=== PATIENT | male | born 1955 | race Two or more races ===

== ENCOUNTER 2018-06-29 03:51 | Inpatient (IN) | payer OTHER ==
[~2018-06-29] VITALS: Ht 185.4 cm; Wt 119.7 kg
[2018-06-29] VITALS (8 sets, daily range): BP systolic 132–170; BP diastolic 80–98
[2018-06-29] MEDS ORDERED: Morphine Sulfate 4mg/ml Inj (IV USE ONLY) IVP ONE (04:15)
[2018-06-29 04:40] LABS: HEMATOCRIT 46.1 % (42.0-52.0); HEMOGLOBIN 15.6 G/DL (14.2-18.0); LYMPHOCYTES % (AUTO) 36.6 % (20.0-45.0); MEAN CORPUSCULAR VOLUME 89 FL (80-99); NEUTROPHILS % (AUTO) 53.4 % (45.0-75.0); PLATELET COUNT 211 K/UL (150-450); RED BLOOD COUNT 5.17 M/UL (4.70-6.10); RED CELL DISTRIBUTION WIDTH 11.7 % (11.6-14.8); WHITE BLOOD COUNT 5.6 K/UL (4.8-10.8)
--- NOTE | 2018-06-29 04:47 | Emergency Room Report ---
History of Present Illness General Chief Complaint: Pain Source: Patient, Significant Other Present Illness HPI Patient's a 62-year-old male who presented after increased right lower extremity pain. Patient prior history of gouty arthritis. Patient had been the taking medications. He had recent laboratory testing which showed normal uric acid level. Patient had been noted to have the pain which radiated from the low back to the right leg. The patient been followed by Dr. Dupree. Allergies: Coded Allergies: No Known Allergies (Unverified , 06/29/18) Patient History Past Medical History: see triage record Reviewed Nursing Documentation: PMH: Agreed; PSxH: Agreed Nursing Documentation-PMH Past Medical History: No History, Except For Hx Hypertension: Yes Review of Systems All Other Systems: negative except mentioned in HPI Physical Exam Vital Signs Date Time Temp Pulse Resp B/P (MAP) Pulse Ox O2 Delivery O2 Flow Rate FiO2 06/29/18 03:56 97.9 58 17 186/93 95 Room Air 97.9 Sp02 EP Interpretation: reviewed, normal General Appearance: normal inspection, well appearing, no apparent distress, alert, Chronically Ill Head: atraumatic ENT: normal ENT inspection, hearing grossly normal, normal voice Neck: normal inspection, full range of motion, supple, no bony tend Respiratory: normal inspection, lungs clear, normal breath sounds, no respiratory distress, no retraction, no wheezing Cardiovascular #1: regular rate, rhythm, no edema Gastrointestinal: normal inspection, normal bowel sounds, non tender, soft, no guarding, no hernia Genitourinary: no CVA tenderness Musculoskeletal: normal inspection, back normal, normal range of motion, decreased range of motion, swelling Neurologic: normal inspection, alert, oriented x3, responsive, 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, speech normal Psychiatric: normal inspection, judgement/insight normal, mood/affect normal Skin: normal inspection, normal color, no rash Medical Decision Making Diagnostic Impression: Primary Impression: DVT of popliteal vein Additional Impression: Gouty arthritis ER Course patient presented for Right leg pain .Differential diagnosis included but was not limited to fracture, contusion, renal stone, vascular insufficiency, aortic aneurysm, cellulitis.Because of complexity of patient's case laboratory testing and imaging studies were ordered.Deep venous thrombosis ultrasound of the right lower extremity showed evidence of popliteal DVT. Patient was started on Lovenox. Dr. Cielo Louise was contacted for inpatient management due to panel physician Labs Test 06/29/18 04:30 White Blood Count 5.6 K/UL (4.8-10.8) Red Blood Count 5.17 M/UL (4.70-6.10) Hemoglobin 15.6 G/DL (14.2-18.0) Hematocrit 46.1 % (42.0-52.0) Mean Corpuscular Volume 89 FL (80-99) Mean Corpuscular Hemoglobin 30.2 PG (27.0-31.0) Mean Corpuscular Hemoglobin Concent 33.8 G/DL (32.0-36.0) Red Cell Distribution Width 11.7 % (11.6-14.8) Platelet Count 211 K/UL (150-450) Mean Platelet Volume 7.4 FL (6.5-10.1) Neutrophils (%) (Auto) 53.4 % (45.0-75.0) Lymphocytes (%) (Auto) 36.6 % (20.0-45.0) Monocytes (%) (Auto) 7.0 % (1.0-10.0) Eosinophils (%) (Auto) 2.0 % (0.0-3.0) Basophils (%) (Auto) 1.0 % (0.0-2.0) Prothrombin Time 10.4 SEC (9.30-11.50) Prothromb Time International Ratio 1.0 (0.9-1.1) Activated Partial Thromboplast Time 28 SEC (23-33) D-Dimer 0.69 mg/L FEU (0.00-0.49) Sodium Level 139 MMOL/L (136-145) Potassium Level 4.1 MMOL/L (3.5-5.1) Chloride Level 104 MMOL/L (98-107) Carbon Dioxide Level 27 MMOL/L (21-32) Anion Gap 8 mmol/L (5-15) Blood Urea Nitrogen 26 mg/dL (7-18) Creatinine 1.1 MG/DL (0.55-1.30) Estimat Glomerular Filtration Rate > 60 mL/min (>60) Glucose Level 108 MG/DL (74-106) Calcium Level 8.7 MG/DL (8.5-10.1) Total Bilirubin 0.3 MG/DL (0.2-1.0) Aspartate Amino Transf (AST/SGOT) 25 U/L (15-37) Alanine Aminotransferase (ALT/SGPT) 30 U/L (12-78) Alkaline Phosphatase 76 U/L (46-116) Total Protein 7.5 G/DL (6.4-8.2) Albumin 3.6 G/DL (3.4-5.0) Globulin 3.9 g/dL Albumin/Globulin Ratio 0.9 (1.0-2.7) Last Vital Signs Date Time Temp Pulse Resp B/P (MAP) Pulse Ox O2 Delivery O2 Flow Rate FiO2 06/29/18 04:38 97.9 59 17 155/92 95 Room Air 97.9 Status: unchanged Disposition: ADMITTED INPATIENT Condition: Serious Referrals: TIEN CRESPO,REFERRING (PCP) Santiago Vazquez MD Jun 29, 2018 04:47
[2018-06-29 04:53] LABS: ANION GAP 8 mmol/L (5-15); BLOOD UREA NITROGEN 26 mg/dL (7-18); CALCIUM 8.7 MG/DL (8.5-10.1); CARBON DIOXIDE 27 MMOL/L (21-32); CHLORIDE 104 MMOL/L (98-107); CREATININE 1.1 MG/DL (0.55-1.30); POTASSIUM 4.1 MMOL/L (3.5-5.1); SODIUM 139 MMOL/L (136-145)
[2018-06-29 04:58] LABS: ALANINE AMINOTRANSFERASE 30 U/L (12-78); ALBUMIN 3.6 G/DL (3.4-5.0); ALBUMIN/GLOBULIN RATIO 0.9 (1.0-2.7); ALKALINE PHOSPHATASE 76 U/L (46-116); ASPARTATE AMINO TRANSFERASE 25 U/L (15-37); BILIRUBIN,TOTAL 0.3 MG/DL (0.2-1.0)
[2018-06-29] MEDS ORDERED: Ketorolac 30mg Inj IV ONE (05:00)
[2018-06-29] MEDS ORDERED: Enoxaparin 80mg Inj SUBQ ONE (05:15)
[2018-06-29] MEDS ORDERED: ALLOPURINOL300 M1 ORAL (08:05)
[2018-06-29] MEDS ORDERED: DICLOFENAC SOD100 MG PO (08:11)
[2018-06-29] MEDS ORDERED: PRAVASTATIN SOD40 M1 ORAL (08:11)
[2018-06-29] MEDS ORDERED: FENOFIBRATE145 M1 ORAL (08:11)
[2018-06-29] MEDS ORDERED: ATENOLOL50 MG ORAL (08:11)
[2018-06-29] MEDS ORDERED: PHENYTOIN SODI100 MG ORAL (08:11)
[2018-06-29] MEDS ORDERED: Xarelto 15mg tab ORAL SCH (09:22)
[2018-06-29] MEDS: Xarelto 15mg tab ORAL SCH ×2 (09:36→17:46)
--- NOTE | 2018-06-29 10:03 | Consultation ---
Consult Note Consult Note Patient's a 62-year-old male who presented after increased right lower extremity pain. Patient prior history of gouty arthritis. Patient had been the taking medications. He had recent laboratory testing which showed normal uric acid level. Patient had been noted to have the pain which radiated from the low back to the right leg. The patient been followed by Dr. Dupree. right leg pain , lower back radiates down examined data reviewed Assessment/Plan HTN Sciatica Obese DVT adjust BP meds check Lipids HgbA1c Tara management Jose Armando Black MD Jun 29, 2018 10:03
[2018-06-29 10:44] LABS: CHOLESTEROL 254 MG/DL (< 200); HDL CHOLESTEROL 66 MG/DL (40-60); TRIGLYCERIDES 152 MG/DL (30-150)
[2018-06-29] MEDS: Diclofenac 75mg tab ORAL SCH ×2 (10:55→18:29)
[2018-06-29 11:07] LABS: APPEARANCE,URINE CLEAR; BILIRUBIN, URINE NEGATIVE (NEGATIVE); GLUCOSE, URINE (UA) NEGATIVE (NEGATIVE); KETONES,URINE NEGATIVE (NEGATIVE); LEUKOCYTE ESTERASE ,URINE 1+ (NEGATIVE); NITRITE,URINE NEGATIVE (NEGATIVE); PH,URINE 5 (4.5-8.0); PROTEIN,URINE NEGATIVE (NEGATIVE); UROBILINOGEN,URINE NORMAL MG/DL (0.0-1.0)
[2018-06-29 11:12] LABS: COLOR,URINE YELLOW
--- NOTE | 2018-06-29 11:40 | Consultation ---
Consult Note Consult Note Hematology Consult Reason for consult: DVT DOS: 06/29/2018 NIURKA CASSIDY: Cielo Mckeon ID 62-year-old male who presented after increased right lower extremity pain. Patient prior history of gouty arthritis. Patient had been the taking medications. He had recent laboratory testing which showed normal uric acid level. Patient had been noted to have the pain which radiated from the low back to the right leg. The patient been followed by Dr. Dupree. Duplex was completed and showed a dvt. Allergies: No Known Allergies (Unverified , 06/29/18) Patient History Past Medical History: see triage record Reviewed Nursing Documentation: PMH: Agreed; PSxH: Agreed Nursing Documentation-PMH Past Medical History: No History, Except For Hx Hypertension: Yes ER ROS - General Review of Systems All Other Systems: negative except mentioned in HPI ER Physical Exam - General Physical Exam Vital Signs Date Time Temp Pulse Resp B/P (MAP) Pulse Ox O2 Delivery O2 Flow Rate FiO2 06/29/18 03:56 97.9 58 17 186/93 95 Room Air 97.9 Sp02 EP Interpretation: reviewed, normal General Appearance: normal inspection, chronically Ill ENT: normal ENT inspection Neck: normal inspection Respiratory: normal inspection, lungs clear Cardiovascular: rrr, no edema Gastrointestinal: normal inspection, normal bowel sounds, nt Genitourinary: no CVA Musculoskeletal: normal inspection, back normal Neurologic: normal inspection, alert, oriented x3, 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 Psychiatric: normal inspection Assessment and Recs: # DVT of popliteal vein -- xarelto 15mg po bid to be started for 3 weeks and begin xarelto 20mg po daily x 3 months total --> given one dose of lovenox in the Er --> no evidence of pulmonary evidence, no sob --> imaging was completed # HTN - sbp goal <140 # Sciatica - weight loss recommended # Gouty arthritis # Morbid Obese --> recommend weight loss Labs Test 06/29/18 04:30 White Blood Count 5.6 K/UL (4.8-10.8) Red Blood Count 5.17 M/UL (4.70-6.10) Hemoglobin 15.6 G/DL (14.2-18.0) Hematocrit 46.1 % (42.0-52.0) Mean Corpuscular Volume 89 FL (80-99) Mean Corpuscular Hemoglobin 30.2 PG (27.0-31.0) Mean Corpuscular Hemoglobin Concent 33.8 G/DL (32.0-36.0) Red Cell Distribution Width 11.7 % (11.6-14.8) Platelet Count 211 K/UL (150-450) Mean Platelet Volume 7.4 FL (6.5-10.1) Neutrophils (%) (Auto) 53.4 % (45.0-75.0) Lymphocytes (%) (Auto) 36.6 % (20.0-45.0) Monocytes (%) (Auto) 7.0 % (1.0-10.0) Eosinophils (%) (Auto) 2.0 % (0.0-3.0) Basophils (%) (Auto) 1.0 % (0.0-2.0) Prothrombin Time 10.4 SEC (9.30-11.50) Prothromb Time International Ratio 1.0 (0.9-1.1) Activated Partial Thromboplast Time 28 SEC (23-33) D-Dimer 0.69 mg/L FEU (0.00-0.49) Sodium Level 139 MMOL/L (136-145) Potassium Level 4.1 MMOL/L (3.5-5.1) Chloride Level 104 MMOL/L (98-107) Carbon Dioxide Level 27 MMOL/L (21-32) Anion Gap 8 mmol/L (5-15) Blood Urea Nitrogen 26 mg/dL (7-18) Creatinine 1.1 MG/DL (0.55-1.30) Estimat Glomerular Filtration Rate > 60 mL/min (>60) Glucose Level 108 MG/DL (74-106) Calcium Level 8.7 MG/DL (8.5-10.1) Total Bilirubin 0.3 MG/DL (0.2-1.0) Aspartate Amino Transf (AST/SGOT) 25 U/L (15-37) Alanine Aminotransferase (ALT/SGPT) 30 U/L (12-78) Alkaline Phosphatase 76 U/L (46-116) Total Protein 7.5 G/DL (6.4-8.2) Albumin 3.6 G/DL (3.4-5.0) Globulin 3.9 g/dL Albumin/Globulin Ratio 0.9 (1.0-2.7) Kleynberg,Soham L. MD Jun 29, 2018 11:40
--- NOTE | 2018-06-29 16:10 | Diagnostic Imaging Report ---
APPROVED REPORT CPT Code: 24898 Present Symptoms Lower Extremity Pain: Right RIGHT LEG: Venous imaging reveals acute thrombus in the popliteal vein. Imaging also reveals patency of the common femoral vein, superficial femoral and calf veins. The greater saphenous vein is also within normal limits. ER was notified of abnormal results at 5:15 AM.
[2018-06-29] MEDS: traMADol 50mg tab ORAL PRN (17:46)
[2018-06-29] MEDS: Phenytoin 100mg cap ORAL SCH (17:47)
[2018-06-30] VITALS: BP 152/88
[2018-06-30] MEDS: traMADol 50mg tab ORAL PRN ×3 (02:34→17:58)
[2018-06-30 04:00] VITALS: BP 167/95
[2018-06-30 08:00] VITALS: BP 141/88
[2018-06-30] MEDS: Phenytoin 100mg cap ORAL SCH ×2 (09:23→17:52)
[2018-06-30] MEDS: Xarelto 15mg tab ORAL SCH ×2 (09:24→17:53)
--- NOTE | 2018-06-30 09:46 | General Progress Note ---
Assessment/Plan Assessment/Plan # DVT of popliteal vein -- xarelto 15mg po bid to be started for 3 weeks and begin xarelto 20mg po daily x 3 months total --> given one dose of lovenox in the Er --> no evidence of pulmonary evidence, no sob --> imaging was completed --> GIVEN PRESCRIPTION TODAY --> Stable for d/c per heme # HTN - sbp goal <140 # Sciatica - weight loss recommended # Gouty arthritis # Morbid Obese --> recommend weight loss Appreciate consultation! Subjective Constitutional: Denies: no symptoms, chills, diaphoresis, fever, malaise, weakness, other HEENT: Denies: no symptoms, eye pain, blurred vision, tearing, double vision, ear pain, ear discharge, nose pain, nose congestion, throat pain, throat swelling, mouth pain, mouth swelling, other Respiratory: Denies: no symptoms, cough, orthopnea, shortness of breath, SOB with excertion, SOB at rest, sputum, stridor, wheezing, other Gastrointestinal/Abdominal: Denies: no symptoms, abdomen distended, abdominal pain, black stools, tarry stools, blood in stool, constipated, diarrhea, difficulty swallowing, nausea, poor appetite, poor fluid intake, rectal bleeding , vomiting, other Genitourinary: Denies: no symptoms, burning, discharge, frequency, flank pain, hematuria, incontinence, pain, urgency, other Neurologic/Psychiatric: Denies: no symptoms, anxiety, depressed, emotional problems, headache, numbness, paresthesia, pre-existing deficit, seizure, tingling, tremors, weakness, other Endocrine: Denies: no symptoms, excessive sweating, flushing, intolerance to cold, intolerance to heat, increased hunger, increased thirst, increased urine, unexplained weight gain, unexplained weight loss, other Hematologic/Lymphatic: Denies: no symptoms, anemia, easy bleeding, easy bruising, other Allergies: Coded Allergies: No Known Allergies (Unverified , 06/29/18) Subjective on xarelto bid dosing Objective Last 24 Hour Vital Signs Date Time Temp Pulse Resp B/P (MAP) Pulse Ox O2 Delivery O2 Flow Rate FiO2 06/30/18 09:24 64 141/88 06/30/18 04:45 167/95 06/30/18 04:00 97.7 68 20 167/95 (119) 97 97.7 06/30/18 00:00 97.1 64 20 152/88 (109) 97 97.1 06/29/18 21:00 Room Air 06/29/18 20:00 98.1 58 20 156/87 (110) 96 98.1 06/29/18 19:04 151/98 (115) 06/29/18 17:46 54 147/93 06/29/18 16:00 97.4 62 21 170/93 (118) 97 97.4 06/29/18 12:24 97.2 54 22 147/93 (111) 95 97.2 Intake and Output 06/29/18 06/30/18 19:00 07:00 Intake Total 800 ml Output Total 1200 ml Balance 800 ml -1200 ml Intake Oral 800 ml Output Urine Total 1200 ml # Voids 3 Laboratory Tests 06/29/18 10:55: Urine Color Yellow, Urine Appearance Clear, Urine pH 5, Urine Specific [place] 1.020, Urine Protein Negative, Urine Glucose (UA) Negative, Urine Ketones Negative, Urine Blood Negative, Urine Nitrite Negative, Urine Bilirubin Negative , Urine Urobilinogen Normal, Urine Leukocyte Esterase 1+H, Urine RBC 0-2H, Urine WBC 2-4, Urine Squamous Epithelial Cells Few, Urine Bacteria Few, Urine Mucus FewH 06/30/18 06:40: Phenytoin (Dilantin) Level [Pending] Height (Feet): 6 Height (Inches): 1.00 Weight (Pounds): 264 General Appearance: no apparent distress EENT: TMs normal Neck: supple Cardiovascular: regular rhythm Respiratory/Chest: chest wall non-tender Abdomen: soft Extremities: non-tender Edema: no edema noted Leg (L), no edema noted Leg (R) Edema: trace edema Neurologic: alert Soham Craven MD Jun 30, 2018 09:46
[2018-06-30] MEDS: Diclofenac 75mg tab ORAL SCH ×2 (11:56→16:47)
[2018-06-30 12:00] VITALS: BP 139/82
--- NOTE | 2018-06-30 13:45 | History and Physical Report ---
DATE OF ADMISSION: 06/29/2018 NOTE: "VERY POOR AUDIO QUALITY" HISTORY OF PRESENT ILLNESS: The patient admitted for acute DVT on the right leg. The patient has been having about two weeks, history of seizures, pain was unbearable. The patient denies shortness of breath. Denies nausea, vomiting, or diarrhea. No fever or chills. No abdominal pain. No shortness of breath. Denies cough. PAST MEDICAL HISTORY: History of gout, history of hypertension, history of degenerative joint disease, hyperlipidemia, seizure disorder. PAST SURGICAL HISTORY: None. ALLERGIES: No known allergies. MEDICATIONS: Allopurinol, atenolol, fenofibrate, phenytoin, and pravastatin. FAMILY HISTORY: Noncontributory. SOCIAL HISTORY: No history of drug or alcohol abuse. Lives with at home. REVIEW OF SYSTEMS: HEENT: Denies headaches. RESPIRATORY: Denies shortness of breath. Denies cough. CARDIOVASCULAR: Denies chest pain. No orthopnea. GASTROINTESTINAL: Denies nausea, vomiting, or diarrhea. EXTREMITIES: Reports right leg pain. CENTRAL NERVOUS SYSTEM: No change in vision or speech pattern. PHYSICAL EXAMINATION: VITAL SIGNS: Temperature is 97.2, pulse is 54, blood pressure 147/92. HEENT: PERRLA. NECK: Supple. No lymphadenopathy. CHEST: Clear to auscultation. GASTROINTESTINAL: Soft, nontender, and nondistended. No organomegaly. EXTREMITIES: No edema. NEUROLOGIC: Moves all four extremities. Sensory intact to light touch. Reflexes are equal on both sides. Nontender on touching the right leg. LABORATORY DATA: WBC of 5.6, hemoglobin 15.6, and platelets of 211,000. Sodium 139, potassium 4.1, chloride 104, BUN of 26, creatinine 1.1, and glucose of 108. ASSESSMENT AND PLAN: Acute DVT. I have asked Dr. Craven and Dr. Alex to see the patient and for bradycardia, I have asked Dr. Almanza to see the patient. Dr. Black will be seeing the patient for azotemia. We will continue seeing the patient and . Cielo Mckeon M.D. DR: Candice JOB#: [id number] CC:
--- NOTE | 2018-06-30 15:08 | Cardiac Electrophysiology PN ---
Subjective Subjective [id number] Objective Last 24 Hour Vital Signs Date Time Temp Pulse Resp B/P (MAP) Pulse Ox O2 Delivery O2 Flow Rate FiO2 06/30/18 12:00 97.3 67 18 139/82 (101) 96 97.3 06/30/18 09:24 64 141/88 06/30/18 09:00 Room Air 06/30/18 08:00 97.8 64 18 141/88 (105) 95 97.8 06/30/18 04:45 167/95 06/30/18 04:00 97.7 68 20 167/95 (119) 97 97.7 06/30/18 00:00 97.1 64 20 152/88 (109) 97 97.1 06/29/18 21:00 Room Air 06/29/18 20:00 98.1 58 20 156/87 (110) 96 98.1 06/29/18 19:04 151/98 (115) 06/29/18 17:46 54 147/93 06/29/18 16:00 97.4 62 21 170/93 (118) 97 97.4 Intake and Output 06/29/18 06/30/18 19:00 07:00 Intake Total 800 ml Output Total 1200 ml Balance 800 ml -1200 ml Intake Oral 800 ml Output Urine Total 1200 ml # Voids 3 Laboratory Tests Test 06/30/18 06:40 Phenytoin (Dilantin) Level 12.7 ug/mL (10-20) Berto Almanza MD Jun 30, 2018 15:08
[2018-06-30 16:00] VITALS: BP 153/91
[2018-06-30 20:00] VITALS: BP 152/82
[2018-06-30] MEDS ORDERED: Atorvastatin 80mg tab ORAL SCH (21:00)
--- NOTE | 2018-06-30 22:30 | Consultation ---
DATE OF CONSULTATION: 06/30/2018 CARDIOLOGY CONSULTATION CONSULTING PHYSICIAN: Berto Almanza M.D. REFERRING PHYSICIAN: Cielo Mckeon M.D. REASON FOR CONSULTATION: Accelerated hypertension. HISTORY OF PRESENT ILLNESS: The patient is a 62-year-old gentleman, who presented to the emergency room with increasing right lower extremity pain with history of gouty arthritis. He has been taking medication. Recent labs showed normal uric acid level. The patient was admitted and Cardiology consultation was obtained for further management of his hypertension, the blood pressure in the ER was 186/93. REVIEW OF SYSTEMS: Negative other than what was mentioned in the history of present illness. PAST MEDICAL HISTORY: 1. Hypertension. 2. Gouty arthritis. 3. Morbid obesity. FAMILY HISTORY: Noncontributory. SOCIAL HISTORY: He lives at home. Does not smoke or drink alcohol. PHYSICAL EXAMINATION: VITAL SIGNS: Blood pressure is 139/82, pulse 67, respirations 18, and temperature 97.3. HEAD AND NECK: Showed no JVD or carotid bruit. LUNGS: Clear. CARDIOVASCULAR: Shows regular S1 and S2 with no gallop or murmur. ABDOMEN: Soft. EXTREMITIES: No pitting edema. LABORATORY DATA: White count 5.7, hematocrit 15, hematocrit 46, and platelets 211,000. Sodium 139, potassium 4.1, BUN 26 and creatinine 1.1. Triglycerides 152. LDL 152. Dilantin is 12.7. D-Dimer 0.69. His lower extremity duplex showed DVT in the right popliteal vein. ASSESSMENT AND PLAN: 1. Accelerated hypertension. The patient is on Norvasc 5 mg b.i.d. and continue p.r.n. clonidine. We will get an echocardiogram for further evaluation. 2. Right leg deep venous thrombosis. The patient is on Xarelto 15 mg b.i.d. 3. Obesity. 4. Hyperlipidemia, on TriCor and Lipitor. Thank you very much, Dr. Mckeon, for allowing me to participate in the care of this patient. Please do not hesitate to contact me for any questions regarding my evaluation. Berto Almanza M.D. DR: MOUNIKA JOB#: [id number] CC:
--- NOTE | 2018-06-30 22:53 | General Progress Note ---
Assessment/Plan Problem List: (1) DVT of popliteal vein ICD Codes: I82.439 - Acute embolism and thrombosis of unspecified popliteal vein SNOMED: 397471298 Status: progressing Assessment/Plan dvt treatment per heme/onc moniter for bleeding dc in am Subjective ROS Limited/Unobtainable: Yes Allergies: Coded Allergies: No Known Allergies (Unverified , 06/29/18) Objective Last 24 Hour Vital Signs Date Time Temp Pulse Resp B/P (MAP) Pulse Ox O2 Delivery O2 Flow Rate FiO2 06/30/18 21:00 Room Air 06/30/18 20:00 98.5 83 22 152/82 (105) 97 98.5 06/30/18 17:52 61 153/91 06/30/18 16:00 97.8 61 18 153/91 (111) 94 97.8 06/30/18 12:00 97.3 67 18 139/82 (101) 96 97.3 06/30/18 09:24 64 141/88 06/30/18 09:00 Room Air 06/30/18 08:00 97.8 64 18 141/88 (105) 95 97.8 06/30/18 04:45 167/95 06/30/18 04:00 97.7 68 20 167/95 (119) 97 97.7 06/30/18 00:00 97.1 64 20 152/88 (109) 97 97.1 Intake and Output 06/29/18 06/30/18 19:00 07:00 Intake Total 800 ml Output Total 1200 ml Balance 800 ml -1200 ml Intake Oral 800 ml Output Urine Total 1200 ml # Voids 3 Laboratory Tests 06/30/18 06:40: Phenytoin (Dilantin) Level 12.7 Height (Feet): 6 Height (Inches): 1.00 Weight (Pounds): 264 Cardiovascular: normal rate Respiratory/Chest: lungs clear Abdomen: soft Cielo Mckeon MD Jun 30, 2018 22:53
[2018-07-01] VITALS: BP 140/90
[2018-07-01] MEDS: traMADol 50mg tab ORAL PRN ×2 (02:11→09:07)
[2018-07-01 04:00] VITALS: BP 162/95
[2018-07-01 08:00] VITALS: BP 175/94
[2018-07-01] MEDS ORDERED: Allopurinol 100mg Tab ORAL SCH (09:00)
[2018-07-01] MEDS: Phenytoin 100mg cap ORAL SCH (09:05)
[2018-07-01] MEDS: Xarelto 15mg tab ORAL SCH (09:06)
--- NOTE | 2018-07-01 09:31 | Cardiac Electrophysiology PN ---
Assessment/Plan Assessment/Plan 1. Accelerated hypertension. The patient is on Norvasc 5 mg b.i.d. and continue p.r.n. clonidine. Echocardiogram pending 2. Right leg deep venous thrombosis. The patient is on Xarelto 15 mg b.i.d. 3. Obesity. 4. Hyperlipidemia, on TriCor and Lipitor. DW son at bedside Subjective Subjective Feeling better. No CP or SOB. Objective Last 24 Hour Vital Signs Date Time Temp Pulse Resp B/P (MAP) Pulse Ox O2 Delivery O2 Flow Rate FiO2 07/01/18 09:07 73 175/94 07/01/18 04:00 98.7 65 22 162/95 (117) 96 98.7 07/01/18 02:41 98.1 07/01/18 00:00 98.1 66 20 140/90 (107) 97 98.1 06/30/18 21:00 Room Air 06/30/18 20:00 98.5 83 22 152/82 (105) 97 98.5 06/30/18 17:52 61 153/91 06/30/18 16:00 97.8 61 18 153/91 (111) 94 97.8 06/30/18 12:00 97.3 67 18 139/82 (101) 96 97.3 Intake and Output 06/30/18 07/01/18 19:00 07:00 Intake Total 1200 ml Output Total 700 ml Balance 1200 ml -700 ml Intake Oral 1200 ml Output Urine Total 700 ml # Voids 6 Objective HEAD AND NECK: Showed no JVD or carotid bruit. LUNGS: Clear. CARDIOVASCULAR: Shows regular S1 and S2 with no gallop or murmur. ABDOMEN: Soft. EXTREMITIES: No pitting edema. Berto Almanza MD Jul 01, 2018 09:31
--- NOTE | 2018-07-01 10:46 | General Progress Note ---
Assessment/Plan Problem List: (1) DVT of popliteal vein ICD Codes: I82.439 - Acute embolism and thrombosis of unspecified popliteal vein SNOMED: 648748574 Assessment/Plan dvt dc home see dc summary for details treatment per heme/onc moniter for bleeding dc in am Subjective ROS Limited/Unobtainable: Yes Allergies: Coded Allergies: No Known Allergies (Unverified , 06/29/18) Objective Last 24 Hour Vital Signs Date Time Temp Pulse Resp B/P (MAP) Pulse Ox O2 Delivery O2 Flow Rate FiO2 07/01/18 09:07 73 175/94 07/01/18 08:00 97.8 73 20 175/94 (121) 95 97.8 07/01/18 04:00 98.7 65 22 162/95 (117) 96 98.7 07/01/18 02:41 98.1 07/01/18 00:00 98.1 66 20 140/90 (107) 97 98.1 06/30/18 21:00 Room Air 06/30/18 20:00 98.5 83 22 152/82 (105) 97 98.5 06/30/18 17:52 61 153/91 06/30/18 16:00 97.8 61 18 153/91 (111) 94 97.8 06/30/18 12:00 97.3 67 18 139/82 (101) 96 97.3 Intake and Output 06/30/18 07/01/18 19:00 07:00 Intake Total 1200 ml Output Total 700 ml Balance 1200 ml -700 ml Intake Oral 1200 ml Output Urine Total 700 ml # Voids 6 Height (Feet): 6 Height (Inches): 1.00 Weight (Pounds): 264 Cielo Mckeon MD Jul 01, 2018 10:46
[2018-07-01 11:02] VITALS: BP 143/90
[2018-07-01] MEDS ORDERED: XARELTO15 MG ORAL (11:13)
[2018-07-01] MEDS ORDERED: XARELTO20 MG ORAL (11:14)
[2018-07-01] MEDS ORDERED: TRAMADOL HCL100 M2 ORAL (11:17)
--- NOTE | 2018-07-01 15:40 | General Progress Note ---
Assessment/Plan Assessment/Plan # DVT of popliteal vein -- xarelto 15mg po bid to be started for 3 weeks and begin xarelto 20mg po daily x 3 months total --> given one dose of lovenox in the Er --> no evidence of pulmonary evidence, no sob --> imaging was completed --> GIVEN PRESCRIPTION TODAY --> Stable for d/c per heme --> given return precautions # HTN - sbp goal <140 # Sciatica - weight loss recommended # Gouty arthritis # Morbid Obese --> recommend weight loss Appreciate consultation! Subjective Constitutional: Reports: no symptoms HEENT: Reports: no symptoms Cardiovascular: Reports: no symptoms Respiratory: Reports: no symptoms Gastrointestinal/Abdominal: Reports: no symptoms Genitourinary: Reports: no symptoms Neurologic/Psychiatric: Reports: no symptoms Endocrine: Reports: no symptoms Hematologic/Lymphatic: Reports: anemia Allergies: Coded Allergies: No Known Allergies (Unverified , 06/29/18) Subjective on xarelto bid dosing given script Objective Last 24 Hour Vital Signs Date Time Temp Pulse Resp B/P (MAP) Pulse Ox O2 Delivery O2 Flow Rate FiO2 07/01/18 11:02 143/90 (107) 07/01/18 09:07 73 175/94 07/01/18 09:00 Room Air 07/01/18 08:00 97.8 73 20 175/94 (121) 95 97.8 07/01/18 04:00 98.7 65 22 162/95 (117) 96 98.7 07/01/18 02:41 98.1 07/01/18 00:00 98.1 66 20 140/90 (107) 97 98.1 06/30/18 21:00 Room Air 06/30/18 20:00 98.5 83 22 152/82 (105) 97 98.5 06/30/18 17:52 61 153/91 06/30/18 16:00 97.8 61 18 153/91 (111) 94 97.8 Intake and Output 06/30/18 07/01/18 19:00 07:00 Intake Total 1200 ml Output Total 700 ml Balance 1200 ml -700 ml Intake Oral 1200 ml Output Urine Total 700 ml # Voids 6 Height (Feet): 6 Height (Inches): 1.00 Weight (Pounds): 264 General Appearance: no apparent distress EENT: TMs normal Neck: supple Cardiovascular: normal rate Respiratory/Chest: lungs clear Abdomen: soft Extremities: non-tender Edema: 1+ Leg (L), 1+ Leg (R) Edema: mild edema Neurologic: alert Soham Craven MD Jul 01, 2018 15:40
--- NOTE | 2018-07-04 09:35 | Cardiology Report ---
APPROVED REPORT EXAM: Two-dimensional and M-mode echocardiogram with Doppler and color Doppler. INDICATION Hypertension/HCVD M-Mode DIMENSIONS IVSd1.1 (0.7-1.1cm)Left Atrium (MM)3.8 (1.6-4.0cm) LVDd3.9 (3.5-5.6cm)Aortic Root3.3 (2.0-3.7cm) PWd1.2 (0.7-1.1cm)Aortic Cusp Exc.2.0 (1.5-2.0cm) IVSs1.9 cm LVDs2.1 (2.5-4.0cm) PWs1.6 cm Technically difficult study due to poor acoustic windows. Study quality precludes accurate assessment of regional wall motion. Normal left ventricular chamber size, systolic function and wall motion. Left ventricular ejection fraction estimated to be 60-65 %. Mild left ventricular hypertrophy. Anterior Echo-free space, may be due to pericardial fat or effusion. All other cardiac chamber sizes are within normal limits. Focal aortic valve sclerosis with adequate cusp excursion. Thickened mitral valve leaflets with normal excursion. Mild mitral annulus and aortic root calcification. Pulmonic valve not well visualized. Normal tricuspid valve structure. IVC is normal in size with physiological collapse. A color flow and spectral Doppler study was performed and revealed: No aortic insufficiency. No mitral regurgitation. Mitral diastolic velocities suggest mild left ventricular diastolic dysfunction (Grade I). No tricuspid regurgitation. Trace pulmonic regurgitation present.
--- NOTE | 2018-07-04 14:49 | Cardiology Report ---
APPROVED REPORT EKG Measurement Heart [id number] Normal sinus rhythm Moderate voltage criteria for LVH, may be normal variant Borderline ECG
--- NOTE | 2018-07-05 09:57 | Discharge Summary ---
Discharge Summary Discharge Summary _ DATE OF ADMISSION: 06/29/2018 DATE OF DISCHARGE: 07/01/2018 REASON FOR ADMISSION: 52 years old male with past medical history of hypertension, gouty arthritis, morbid obesity, presented with complaint of right lower extremity pain. According to patient, he had recent laboratory testing showed normal uric acid level. Vital signs reveal elevated blood pressure 186/93. Pulse oximetry was stable on room air. Laboratory workup revealed no leukocytosis, stable hemoglobin and hematocrit. Stable electrolytes. C-reactive protein 1.2. BUN -26. Creatinine -1.1 D-dimer elevated- 0.69. Urinalysis revealed no evidence of urinary tract infection. Venous duplex of bilateral lower extremities revealed acute thrombosis in the popliteal vein right lower extremity. Patient was started on Lovenox. Patient admitted with diagnoses of acute DVT popliteal vein, gouty arthritis., accelerated hypertension. CONSULTANTS: patient support tech Dr. Almanza rn document improvement Dr. Black road boss/oncologist Dr. Craven [facility] COURSE: Patient admitted. Patient initially started on Lovenox. Cross Cut Saw Operator seen and evaluated patient. Patient was switched to Xarelto. Patient will require 3 weeks of Xarelto 15 mg twice a day and afterwards Xarelto 20 mg daily for 3 months. Supplemental oxygen and pulmonary toilet were on standby as needed. Pulse oximetry was stable on room air. No shortness of breath. Metal Polisher And Buffer Apprentice closely followed Antihypertensive medication regimen was optimized to keep blood pressure under control . Prior to discharge blood pressure stabilized. Lipid panel revealed mixed hyperlipidemia. Statin and TriCor were continued. Fish oil added to the regimen. Patient was educated on low-fat low-cholesterol diet. GI prophylaxis provided. Pain management was addressed. Echocardiogram revealed preserved ejection fraction of 60-65%. Uric acid was within normal limits. Allopurinol was continued. Patient was advised on weight loss. Hemoglobin A1c -5.9, and TSH at goal. Prescription for Xarelto provided by road boss, and patient was encouraged on compliance with medication regimen. Return to ED precautions provided. Patient stabilized and was ready for discharge home FINAL DIAGNOSES: Acute DVT right lower extremity, popliteal vein Accelerated hypertension/hypertensive urgency Gouty arthritis Hyperlipidemia Morbid obesity Sciatica DISCHARGE MEDICATIONS: See Medication Reconciliation list. DISCHARGE INSTRUCTIONS: Patient was discharged home Follow up with primary care provider in one week. I have been assigned to dictate discharge summary for this account. I was not involved in the patient's management. Yenifer Barnett NP Jul 05, 2018 09:57
== END 2018-07-01 11:35 | disposition home or self-care (01) | DRG 197 ==
LOC: EMR 04:21 → 4E 05:27 → EDBEDREQ 05:45
DX: I82.431 Acute embolism and thrombosis of right popliteal vein (principal); E66.01 Morbid (severe) obesity due to excess calories; I16.0 Hypertensive urgency; M10.9 Gout, unspecified; M54.30 Sciatica, unspecified side; E78.2 Mixed hyperlipidemia; G40.909 Epilepsy, unspecified, not intractable, without status epilepticus
CPT/HCPCS: 36415; 80053; 80061; 80185; 81001; 83036; 84443; 84550; 85025; 85379; 85610; 85730; 86140; 93005; 93306; 93971; 96374; 96375; 99285; J2405